=== PATIENT | male | born 1940 | race Caucasian/White ===

== ENCOUNTER → 2017-07-20 | Outpatient (CLI) | payer OTHER ==
[2017-07-20 11:50] LABS: BASOPHILS ABSOLUTE AUTO 0.03 K/mm3 (0.00-0.23); BASOPHILS PERCENT AUTO 0 % (0-2); EOSINOPHILS ABSOLUTE AUTO 0.01 K/mm3 (0.00-0.68); EOSINOPHILS PERCENT AUTO 0 % (0-6); Hematocrit 46.8 % (37.0-53.0); Hemoglobin 16.6 g/dL (13.5-17.5); IMMATURE GRAN ABSOLUTE AUTO 0.12 K/mm3 (0.00-0.10); IMMATURE GRAN PERCENT AUTO 1 % (0-1); LYMPHOCYTES ABSOLUTE AUTO 0.83 K/mm3 (0.84-5.20); LYMPHOCYTES PERCENT AUTO 4 % (21-46); MONOCYTES ABSOLUTE AUTO 1.49 K/mm3 (0.16-1.47); MONOCYTES PERCENT AUTO 7 % (4-13); Mean Corpuscular HGB 29.1 pg (26.0-34.0); Mean Corpuscular HGB Conc 35.5 g/dL (31.5-36.5); Mean Corpuscular Volume 82 fL (80-100); NEUTROPHILS ABSOLUTE AUTO 17.65 K/mm3 (1.96-9.15); NEUTROPHILS PERCENT AUTO 88 % (41-73); Platelet Count 269 K/mm3 (150-400); RDW Coefficient Variation 13.7 % (11.7-14.2); RDW Standard Deviation 39.9 fL (35.1-46.3); White Blood Cell Count 20.13 K/mm3 (4.00-11.30)
[2017-07-20 12:11] LABS: Alanine Aminotransfer (ALT/SGP 21 U/L (12-78); Albumin, Blood 3.9 g/dL (3.4-5.0); Alk Phos 87 U/L (40-126); Anion Gap 10 mmol/L (6-16); Aspartate Aminotrans (AST/SGOT 24 U/L (12-37); Bilirubin, Total 0.7 mg/dL (0.1-1.0); Blood Urea Nitrogen 19 mg/dL (8-24); Bun/Creatinine Ratio 12.5 (12.0-20.0); CO2, Blood 29 mmol/L (21-32); CPK Creatine Kinase 102 U/L (39-308); Calcium, Blood 10.4 mg/dL (8.5-10.1); Chloride, Blood 94 mmol/L (98-108); Creatinine, Blood 1.52 mg/dL (0.60-1.20); Glomerular Filtration Rate 45 (60-); Glucose, Blood 131 mg/dL (70-99); Potassium, Blood 3.8 mmol/L (3.5-5.5); Sodium, Blood 133 mmol/L (136-145); Total Protein, Blood 7.9 g/dL (6.4-8.2)
[2017-07-20 12:16] LABS: Troponin I <0.017 ng/mL (0.000-0.040)
[2017-07-20 12:20] LABS: Bacteria Not Seen /hpf; Red Blood Cells, Urine Rare /hpf (0-2); Squamous Epithelial Cells Rare /hpf (Few); White Blood Cells, Urine Not Seen /hpf (0-5)
== END | disposition home or self-care (01) ==
LOC: LAB EV 11:46
PROVIDERS: General Practice
DX: R07.89 Other chest pain (principal); R31.9 Hematuria, unspecified
CPT/HCPCS: 80053; 81015; 82550; 84484; 85025; 87086

== ENCOUNTER → 2018-02-02 | Outpatient (CLI) | payer OTHER ==
[2018-02-03 18:05] LABS: BASOPHILS ABSOLUTE AUTO 0.07 K/mm3 (0.00-0.23); BASOPHILS PERCENT AUTO 1 % (0-2); EOSINOPHILS ABSOLUTE AUTO 0.41 K/mm3 (0.00-0.68); EOSINOPHILS PERCENT AUTO 3 % (0-6); Hematocrit 45.4 % (37.0-53.0); Hemoglobin 15.2 g/dL (13.5-17.5); IMMATURE GRAN PERCENT AUTO 1 % (0-1); LYMPHOCYTES ABSOLUTE AUTO 1.67 K/mm3 (0.84-5.20); LYMPHOCYTES PERCENT AUTO 12 % (21-46); MONOCYTES ABSOLUTE AUTO 1.13 K/mm3 (0.16-1.47); MONOCYTES PERCENT AUTO 8 % (4-13); Mean Corpuscular HGB 28.6 pg (26.0-34.0); Mean Corpuscular HGB Conc 33.5 g/dL (31.5-36.5); Mean Corpuscular Volume 86 fL (80-100); Mean Platelet Volume 10.3 fL (9.1-12.4); NEUTROPHILS ABSOLUTE AUTO 10.68 K/mm3 (1.96-9.15); NEUTROPHILS PERCENT AUTO 76 % (41-73); Platelet Count 316 K/mm3 (150-400); RDW Coefficient Variation 14.6 % (11.7-14.2); RDW Standard Deviation 45.4 fL (35.1-46.3); Red Blood Cell Count 5.31 M/mm3 (4.30-5.90); White Blood Cell Count 14.06 K/mm3 (4.00-11.30)
[2018-02-03 18:27] LABS: Alanine Aminotransfer (ALT/SGP 20 U/L (12-78); Albumin/Globulin Ratio 1.2 (0.8-1.8); Alk Phos 81 U/L (50-136); Anion Gap 9 mmol/L (6-16); Aspartate Aminotrans (AST/SGOT 16 U/L (12-37); Bilirubin, Total 0.5 mg/dL (0.1-1.0); Blood Urea Nitrogen 19 mg/dL (8-24); Bun/Creatinine Ratio 21.5 (12.0-20.0); CHOL/HDL RATIO 2.9; CO2, Blood 24 mmol/L (21-32); Calcium, Blood 9.4 mg/dL (8.5-10.1); Chloride, Blood 102 mmol/L (98-108); Cholesterol 131 mg/dL (50-200); Creatinine, Blood 0.88 mg/dL (0.60-1.20); Globulin, Blood 3.4 g/dL (2.2-4.0); Glomerular Filtration Rate >60 (60-); Glucose, Blood 86 mg/dL (70-99); HDL Cholesterol 45 mg/dL (>39); LDL/HDL RATIO 1.6; Low Density Lipoprotein Chol 71 mg/dL (0-110); Sodium, Blood 135 mmol/L (136-145); Total Protein, Blood 7.4 g/dL (6.4-8.2); Triglycerides 75 mg/dL (30-160); Very Low Density Lipoprot Chol 15 mg/dL (6-32)
== END ==
LOC: LAB SHORT 17:49 → LAB 17:49 → LAB SHORT 02-03 17:49
PROVIDERS: Nurse Practitioner Adult Health
DX: J44.9 Chronic obstructive pulmonary disease, unspecified (principal); E78.5 Hyperlipidemia, unspecified; I10 Essential (primary) hypertension; F17.210 Nicotine dependence, cigarettes, uncomplicated
CPT/HCPCS: 80053; 80061; 85025

== ENCOUNTER → 2018-10-13 | Outpatient (CLI) | payer OTHER ==
[2018-10-13 18:35] LABS: BASOPHILS ABSOLUTE AUTO 0.07 K/mm3 (0.00-0.23); BASOPHILS PERCENT AUTO 0 % (0-2); EOSINOPHILS ABSOLUTE AUTO 0.84 K/mm3 (0.00-0.68); EOSINOPHILS PERCENT AUTO 5 % (0-6); Hematocrit 51.8 % (37.0-53.0); Hemoglobin 17.1 g/dL (13.5-17.5); IMMATURE GRAN ABSOLUTE AUTO 0.32 K/mm3 (0.00-0.10); IMMATURE GRAN PERCENT AUTO 2 % (0-1); LYMPHOCYTES ABSOLUTE AUTO 1.72 K/mm3 (0.84-5.20); LYMPHOCYTES PERCENT AUTO 10 % (21-46); MONOCYTES PERCENT AUTO 9 % (4-13); Mean Corpuscular HGB 28.6 pg (26.0-34.0); Mean Corpuscular Volume 87 fL (80-100); NEUTROPHILS ABSOLUTE AUTO 12.47 K/mm3 (1.96-9.15); NEUTROPHILS PERCENT AUTO 74 % (41-73); Platelet Count 235 K/mm3 (150-400); RDW Coefficient Variation 14.5 % (11.7-14.2); RDW Standard Deviation 45.9 fL (35.1-46.3); Red Blood Cell Count 5.97 M/mm3 (4.30-5.90); White Blood Cell Count 16.92 K/mm3 (4.00-11.30)
[2018-10-13 19:14] LABS: Alanine Aminotransfer (ALT/SGP 23 U/L (12-78); Albumin, Blood 3.4 g/dL (3.4-5.0); Albumin/Globulin Ratio 0.8 (0.8-1.8); Alk Phos 87 U/L (50-136); Anion Gap 7 mmol/L (6-16); Aspartate Aminotrans (AST/SGOT 18 U/L (12-37); Bilirubin, Total 0.4 mg/dL (0.1-1.0); Blood Urea Nitrogen 24 mg/dL (8-24); Bun/Creatinine Ratio 23.1 (12.0-20.0); CHOL/HDL RATIO 3.2; CO2, Blood 25 mmol/L (21-32); Calcium, Blood 9.2 mg/dL (8.5-10.1); Chloride, Blood 103 mmol/L (98-108); Cholesterol 148 mg/dL (50-200); Creatinine, Blood 1.04 mg/dL (0.60-1.20); Globulin, Blood 4.1 g/dL (2.2-4.0); Glomerular Filtration Rate >60 (60-); Glucose, Blood 102 mg/dL (70-99); HDL Cholesterol 46 mg/dL (>39); LDL Direct Measurement 85 mg/dL (0-130); LDL/HDL RATIO 1.7; Low Density Lipoprotein Chol 79 mg/dL (0-110); Potassium, Blood 3.9 mmol/L (3.5-5.5); Sodium, Blood 135 mmol/L (136-145); Total Protein, Blood 7.5 g/dL (6.4-8.2); Triglycerides 116 mg/dL (30-160); Very Low Density Lipoprot Chol 23 mg/dL (6-32)
== END | disposition home or self-care (01) ==
LOC: LAB SHORT 17:53 → LAB 17:53
PROVIDERS: Nurse Practitioner Family
DX: I10 Essential (primary) hypertension (principal)
CPT/HCPCS: 80053; 80061; 83721; 84443; 85025

== ENCOUNTER 2019-01-07 15:39 | Emergency (ER) | payer OTHER ==
[~2019-01-07] VITALS: Ht 177.8 cm; Wt 117.9 kg
[2019-01-07 16:23] LABS: BASOPHILS ABSOLUTE AUTO 0.07 K/mm3 (0.00-0.23); BASOPHILS PERCENT AUTO 1 % (0-2); EOSINOPHILS ABSOLUTE AUTO 0.72 K/mm3 (0.00-0.68); EOSINOPHILS PERCENT AUTO 7 % (0-6); Hematocrit 46.1 % (37.0-53.0); Hemoglobin 15.6 g/dL (13.5-17.5); IMMATURE GRAN ABSOLUTE AUTO 0.07 K/mm3 (0.00-0.10); IMMATURE GRAN PERCENT AUTO 1 % (0-1); LYMPHOCYTES PERCENT AUTO 13 % (21-46); MONOCYTES ABSOLUTE AUTO 1.18 K/mm3 (0.16-1.47); MONOCYTES PERCENT AUTO 12 % (4-13); Mean Corpuscular HGB 29.3 pg (26.0-34.0); Mean Corpuscular HGB Conc 33.8 g/dL (31.5-36.5); Mean Corpuscular Volume 87 fL (80-100); Mean Platelet Volume 10.1 fL (9.1-12.4); NEUTROPHILS ABSOLUTE AUTO 6.79 K/mm3 (1.96-9.15); NEUTROPHILS PERCENT AUTO 67 % (41-73); Platelet Count 249 K/mm3 (150-400); RDW Coefficient Variation 14.5 % (11.7-14.2); Red Blood Cell Count 5.33 M/mm3 (4.30-5.90); White Blood Cell Count 10.13 K/mm3 (4.00-11.30)
[2019-01-07 16:40] LABS: Alanine Aminotransfer (ALT/SGP 15 U/L (12-78); Albumin, Blood 3.5 g/dL (3.4-5.0); Albumin/Globulin Ratio 0.9 (0.8-1.8); Alk Phos 89 U/L (50-136); Anion Gap 5 mmol/L (6-16); Aspartate Aminotrans (AST/SGOT 15 U/L (12-37); Bilirubin, Total 0.4 mg/dL (0.1-1.0); Blood Urea Nitrogen 26 mg/dL (8-24); Bun/Creatinine Ratio 23.2 (12.0-20.0); CO2, Blood 28 mmol/L (21-32); Calcium, Blood 9.5 mg/dL (8.5-10.1); Chloride, Blood 107 mmol/L (98-108); Creatinine, Blood 1.12 mg/dL (0.60-1.20); Globulin, Blood 4.1 g/dL (2.2-4.0); Glomerular Filtration Rate >60 (60-); Glucose, Blood 95 mg/dL (70-99); Potassium, Blood 3.9 mmol/L (3.5-5.5); Sodium, Blood 140 mmol/L (136-145); Total Protein, Blood 7.6 g/dL (6.4-8.2)
[2019-01-07] MEDS ORDERED: ALBU90OI INH (18:13)
[2019-01-07] MEDS ORDERED: ALBU3IS INH (18:13)
[2019-01-07] MEDS ORDERED: Zithromax250 MG PO (18:13)
[2019-01-07] MEDS ORDERED: Prednisone50 MG PO (18:13)
== END 2019-01-07 19:01 | disposition home or self-care (01) ==
LOC: ER 15:39
PROVIDERS: Physician Assistant
DX: J44.1 Chronic obstructive pulmonary disease with (acute) exacerbation (principal); Z79.899 Other long term (current) drug therapy; Z87.891 Personal history of nicotine dependence
CPT/HCPCS: 36415; 71046; 80053; 83880; 85025; 93005; 93010; 94644; 96374; 96375; 99284-25; J1100; J1940

== ENCOUNTER 2019-01-24 17:03 | Emergency (ER) | payer OTHER ==
[~2019-01-24] VITALS: Ht 177.8 cm; Wt 117.9 kg
[~2019-01-24 17:03] MED LIST: ALBU3IS INH; ALBU90OI INH; Prednisone50 MG PO; Zithromax250 MG PO
[2019-01-24 17:58] LABS: BASOPHILS ABSOLUTE AUTO 0.07 K/mm3 (0.00-0.23); BASOPHILS PERCENT AUTO 1 % (0-2); EOSINOPHILS ABSOLUTE AUTO 1.24 K/mm3 (0.00-0.68); EOSINOPHILS PERCENT AUTO 9 % (0-6); Hematocrit 46.4 % (37.0-53.0); Hemoglobin 15.2 g/dL (13.5-17.5); IMMATURE GRAN ABSOLUTE AUTO 0.09 K/mm3 (0.00-0.10); IMMATURE GRAN PERCENT AUTO 1 % (0-1); LYMPHOCYTES ABSOLUTE AUTO 1.03 K/mm3 (0.84-5.20); LYMPHOCYTES PERCENT AUTO 8 % (21-46); MONOCYTES ABSOLUTE AUTO 1.02 K/mm3 (0.16-1.47); MONOCYTES PERCENT AUTO 8 % (4-13); Mean Corpuscular HGB 29.1 pg (26.0-34.0); Mean Corpuscular HGB Conc 32.8 g/dL (31.5-36.5); Mean Corpuscular Volume 89 fL (80-100); NEUTROPHILS ABSOLUTE AUTO 9.99 K/mm3 (1.96-9.15); NEUTROPHILS PERCENT AUTO 74 % (41-73); Platelet Count 220 K/mm3 (150-400); RDW Coefficient Variation 14.2 % (11.7-14.2); RDW Standard Deviation 46.4 fL (35.1-46.3); Red Blood Cell Count 5.22 M/mm3 (4.30-5.90); White Blood Cell Count 13.44 K/mm3 (4.00-11.30)
[2019-01-24 18:22] LABS: Albumin, Blood 3.5 g/dL (3.4-5.0); Albumin/Globulin Ratio 0.9 (0.8-1.8); Bilirubin, Total 0.3 mg/dL (0.1-1.0); Bun/Creatinine Ratio 22.7 (12.0-20.0); Calcium, Blood 9.3 mg/dL (8.5-10.1); Creatinine, Blood 1.41 mg/dL (0.60-1.20); Globulin, Blood 3.8 g/dL (2.2-4.0); Potassium, Blood 3.3 mmol/L (3.5-5.5); Total Protein, Blood 7.3 g/dL (6.4-8.2); Troponin I 0.036 ng/mL (0.000-0.040)
[2019-01-24] MEDS ORDERED: ZESTORETIC 20-251 EA PO (19:59)
[2019-01-24] MEDS ORDERED: Simvastatin40 MG PO (19:59)
[2019-01-24] MEDS ORDERED: TIOT18 INH (19:59)
[2019-01-24] MEDS ORDERED: Advair Hfa 45-212 GM INH (20:00)
[2019-01-24] MEDS ORDERED: GABA300 PO (20:00)
[2019-01-24] MEDS ORDERED: Ventolin/Prove6.7 GM INH (20:00)
[2019-01-24] MEDS ORDERED: Hydrocodone-Ap1 EA23 PO (20:01)
[2019-01-24] MEDS ORDERED: ALBU3IS NEB (20:01)
[2019-01-24] MEDS ORDERED: PRED20 PO (20:04)
== END 2019-01-24 20:20 | disposition home or self-care (01) ==
LOC: ER 17:03
PROVIDERS: Physician Assistant
DX: J44.1 Chronic obstructive pulmonary disease with (acute) exacerbation (principal); Z87.891 Personal history of nicotine dependence; Z79.899 Other long term (current) drug therapy
CPT/HCPCS: 71046; 80053; 83880; 84484; 85025; 93005; 93010; 94644; 96374; 99284-25; J2930

== ENCOUNTER → 2019-05-24 | Outpatient (CLI) | payer OTHER ==
[~2019-05-24] MED LIST changes: +ALBU3IS NEB; +Advair Hfa 45-212 GM INH; +GABA300 PO; +Hydrocodone-Ap1 EA23 PO; +PRED20 PO; +Simvastatin40 MG PO; +TIOT18 INH; +Ventolin/Prove6.7 GM INH; +ZESTORETIC 20-251 EA PO
[2019-05-24 19:40] LABS: BASOPHILS ABSOLUTE AUTO 0.04 K/mm3 (0.00-0.23); BASOPHILS PERCENT AUTO 0 % (0-2); EOSINOPHILS ABSOLUTE AUTO 0.74 K/mm3 (0.00-0.68); EOSINOPHILS PERCENT AUTO 7 % (0-6); Hematocrit 47.5 % (37.0-53.0); Hemoglobin 15.7 g/dL (13.5-17.5); IMMATURE GRAN ABSOLUTE AUTO 0.06 K/mm3 (0.00-0.10); IMMATURE GRAN PERCENT AUTO 1 % (0-1); LYMPHOCYTES ABSOLUTE AUTO 1.45 K/mm3 (0.84-5.20); LYMPHOCYTES PERCENT AUTO 13 % (21-46); MONOCYTES PERCENT AUTO 8 % (4-13); Mean Corpuscular HGB 28.6 pg (26.0-34.0); Mean Corpuscular HGB Conc 33.1 g/dL (31.5-36.5); Mean Corpuscular Volume 87 fL (80-100); Mean Platelet Volume 10.7 fL (9.1-12.4); NEUTROPHILS PERCENT AUTO 71 % (41-73); Platelet Count 230 K/mm3 (150-400); RDW Coefficient Variation 13.4 % (11.7-14.2); RDW Standard Deviation 42.5 fL (35.1-46.3); Red Blood Cell Count 5.49 M/mm3 (4.30-5.90); White Blood Cell Count 10.99 K/mm3 (4.00-11.30)
[2019-05-24 20:27] LABS: Alanine Aminotransfer (ALT/SGP 15 U/L (12-78); Albumin, Blood 3.5 g/dL (3.4-5.0); Albumin/Globulin Ratio 0.9 (0.8-1.8); Alk Phos 79 U/L (50-136); Anion Gap 7 mmol/L (6-16); Aspartate Aminotrans (AST/SGOT 10 U/L (12-37); Bilirubin, Total 0.7 mg/dL (0.1-1.0); Blood Urea Nitrogen 30 mg/dL (8-24); CHOL/HDL RATIO 3.2; CO2, Blood 25 mmol/L (21-32); Calcium, Blood 9.8 mg/dL (8.5-10.1); Chloride, Blood 104 mmol/L (98-108); Cholesterol 130 mg/dL (50-200); Globulin, Blood 3.8 g/dL (2.2-4.0); Glomerular Filtration Rate 48 (60-); Glucose, Blood 121 mg/dL (70-99); HDL Cholesterol 40 mg/dL (>39); LDL Direct Measurement 59 mg/dL (0-130); LDL/HDL RATIO 1.5; Low Density Lipoprotein Chol 59 mg/dL (0-110); Potassium, Blood 3.8 mmol/L (3.5-5.5); Sodium, Blood 136 mmol/L (136-145); Total Protein, Blood 7.3 g/dL (6.4-8.2); Triglycerides 157 mg/dL (30-160); Very Low Density Lipoprot Chol 31 mg/dL (6-32)
== END | disposition home or self-care (01) ==
LOC: LAB SHORT 18:34 → LAB 18:34
PROVIDERS: Nurse Practitioner Family
DX: E78.5 Hyperlipidemia, unspecified (principal); I10 Essential (primary) hypertension
CPT/HCPCS: 80053; 80061; 83721; 85025

== ENCOUNTER 2019-12-08 12:17 | Emergency (ER) | payer OTHER ==
[~2019-12-08] VITALS: Ht 177.8 cm; Wt 113.4 kg
[2019-12-08 13:02] LABS: BASOPHILS ABSOLUTE AUTO 0.07 K/mm3 (0.00-0.23); BASOPHILS PERCENT AUTO 1 % (0-2); EOSINOPHILS ABSOLUTE AUTO 0.48 K/mm3 (0.00-0.68); EOSINOPHILS PERCENT AUTO 4 % (0-6); Hematocrit 50.5 % (37.0-53.0); Hemoglobin 17.1 g/dL (13.5-17.5); IMMATURE GRAN PERCENT AUTO 1 % (0-1); LYMPHOCYTES ABSOLUTE AUTO 1.55 K/mm3 (0.84-5.20); LYMPHOCYTES PERCENT AUTO 12 % (21-46); MONOCYTES PERCENT AUTO 9 % (4-13); Mean Corpuscular HGB 28.8 pg (26.0-34.0); Mean Corpuscular HGB Conc 33.9 g/dL (31.5-36.5); Mean Corpuscular Volume 85 fL (80-100); Mean Platelet Volume 9.9 fL (9.1-12.4); NEUTROPHILS ABSOLUTE AUTO 9.35 K/mm3 (1.96-9.15); NEUTROPHILS PERCENT AUTO 73 % (41-73); Platelet Count 269 K/mm3 (150-400); RDW Coefficient Variation 13.8 % (11.7-14.2); RDW Standard Deviation 42.9 fL (35.1-46.3); Red Blood Cell Count 5.94 M/mm3 (4.30-5.90); White Blood Cell Count 12.75 K/mm3 (4.00-11.30)
[2019-12-08] MEDS ORDERED: Cymbalta30 MG PO (13:11)
[2019-12-08] MEDS ORDERED: NEURONTIN300 MG PO (13:11)
[2019-12-08] MEDS ORDERED: PRED5 PO (13:13)
[2019-12-08] MEDS ORDERED: LISINOPRIL-HCT1 EAC1 PO (13:14)
[2019-12-08 13:30] LABS: Alanine Aminotransfer (ALT/SGP 16 U/L (12-78); Albumin, Blood 3.8 g/dL (3.4-5.0); Alk Phos 71 U/L (50-136); Anion Gap 5 mmol/L (6-16); Aspartate Aminotrans (AST/SGOT 16 U/L (12-37); Bilirubin, Total 0.4 mg/dL (0.1-1.0); Blood Urea Nitrogen 15 mg/dL (8-24); Bun/Creatinine Ratio 13.4 (12.0-20.0); CO2, Blood 25 mmol/L (21-32); Calcium, Blood 9.8 mg/dL (8.5-10.1); Chloride, Blood 106 mmol/L (98-108); Creatinine, Blood 1.12 mg/dL (0.60-1.20); Globulin, Blood 3.8 g/dL (2.2-4.0); Glomerular Filtration Rate >60 (60-); Glucose, Blood 95 mg/dL (70-99); Potassium, Blood 3.8 mmol/L (3.5-5.5); Sodium, Blood 136 mmol/L (136-145); Total Protein, Blood 7.6 g/dL (6.4-8.2)
[2019-12-08] MEDS ORDERED: Halcion0.25 MG PO (13:50)
[2019-12-08] MEDS ORDERED: TRAM50 PO (13:50)
== END 2019-12-08 14:12 | disposition home or self-care (01) ==
LOC: ER 12:17
PROVIDERS: Emergency Medicine
DX: R51 Headache (principal); M25.552 Pain in left hip; G89.29 Other chronic pain; G47.00 Insomnia, unspecified; F43.9 Reaction to severe stress, unspecified; J44.9 Chronic obstructive pulmonary disease, unspecified; Z79.899 Other long term (current) drug therapy; Z87.891 Personal history of nicotine dependence
CPT/HCPCS: 36415; 70450; 80053; 85025; 99284-25

== ENCOUNTER → 2020-05-15 | Outpatient (CLI) | payer OTHER ==
[~2020-05-15] MED LIST changes: +Cymbalta30 MG PO; +Halcion0.25 MG PO; +LISINOPRIL-HCT1 EAC1 PO; +NEURONTIN300 MG PO; +PRED5 PO; +TRAM50 PO
[2020-05-15 18:05] LABS: BASOPHILS ABSOLUTE AUTO 0.07 K/mm3 (0.00-0.23); BASOPHILS PERCENT AUTO 1 % (0-2); EOSINOPHILS ABSOLUTE AUTO 0.27 K/mm3 (0.00-0.68); EOSINOPHILS PERCENT AUTO 2 % (0-6); Hematocrit 51.5 % (37.0-53.0); IMMATURE GRAN ABSOLUTE AUTO 0.09 K/mm3 (0.00-0.10); IMMATURE GRAN PERCENT AUTO 1 % (0-1); LYMPHOCYTES PERCENT AUTO 8 % (21-46); MONOCYTES ABSOLUTE AUTO 0.91 K/mm3 (0.16-1.47); MONOCYTES PERCENT AUTO 7 % (4-13); Mean Corpuscular HGB 29.3 pg (26.0-34.0); Mean Corpuscular Volume 89 fL (80-100); Mean Platelet Volume 10.4 fL (9.1-12.4); NEUTROPHILS ABSOLUTE AUTO 10.57 K/mm3 (1.96-9.15); NEUTROPHILS PERCENT AUTO 82 % (41-73); Platelet Count 254 K/mm3 (150-400); RDW Coefficient Variation 14.1 % (11.7-14.2); RDW Standard Deviation 45.4 fL (35.1-46.3); White Blood Cell Count 12.91 K/mm3 (4.00-11.30)
[2020-05-15 18:47] LABS: Alanine Aminotransfer (ALT/SGP 24 U/L (12-78); Albumin, Blood 3.7 g/dL (3.4-5.0); Alk Phos 93 U/L (50-136); Anion Gap 7 mmol/L (6-16); Aspartate Aminotrans (AST/SGOT 23 U/L (12-37); Bilirubin, Total 0.4 mg/dL (0.1-1.0); Blood Urea Nitrogen 22 mg/dL (8-24); Bun/Creatinine Ratio 24.5 (12.0-20.0); CHOL/HDL RATIO 2.7; CO2, Blood 24 mmol/L (21-32); Calcium, Blood 9.6 mg/dL (8.5-10.1); Chloride, Blood 105 mmol/L (98-108); Cholesterol 146 mg/dL (50-200); Globulin, Blood 3.8 g/dL (2.2-4.0); Glomerular Filtration Rate >60 (60-); Glucose, Blood 106 mg/dL (70-99); HDL Cholesterol 55 mg/dL (>39); LDL/HDL RATIO 1.2; Low Density Lipoprotein Chol 68 mg/dL (0-110); Potassium, Blood 4.1 mmol/L (3.5-5.5); Sodium, Blood 136 mmol/L (136-145); Total Protein, Blood 7.5 g/dL (6.4-8.2); Triglycerides 114 mg/dL (30-160); Very Low Density Lipoprot Chol 22 mg/dL (6-32)
== END | disposition home or self-care (01) ==
LOC: LAB SHORT 14:20
PROVIDERS: Nurse Practitioner Family
DX: E78.5 Hyperlipidemia, unspecified (principal); I10 Essential (primary) hypertension
CPT/HCPCS: 80053; 80061; 85025

== ENCOUNTER → 2020-08-03 | Outpatient (CLI) | payer OTHER ==
[2020-08-03 17:31] LABS: Appearance, Urine Clear (Clear); Bilirubin, Urine Neg (Neg); Blood, Urine 1+ (Neg); Color, Urine Yellow (P-Yellow); Glucose Qualitative, Urine Neg (Neg); Ketones, Urine Neg (Neg); Leukocyte Esterase, Urine 1+ (Neg); Nitrite, Urine Neg (Neg); Protein, Urine 2+ (Neg); Urobilinogen, Urine 1+ (Normal)
[2020-08-03 17:42] LABS: Bacteria Rare /hpf; Mucus Light (0-Heavy); Squamous Epithelial Cells Rare /hpf (Few)
[2020-08-03 17:43] LABS: Amorphous Light (0-Heavy)
== END ==
LOC: LAB 16:18 → LAB SHORT 16:18
PROVIDERS: Nurse Practitioner Family
DX: R30.9 Painful micturition, unspecified (principal)
CPT/HCPCS: 81001; 87086

== ENCOUNTER → 2020-11-20 | Outpatient (CLI) | payer OTHER | END | disposition home or self-care (01) | LOC: LAB 16:11 | DX: J44.9 Chronic obstructive pulmonary disease, unspecified (principal); E11.9 Type 2 diabetes mellitus without complications; E66.9 Obesity, unspecified; R53.83 Other fatigue; R97.20 Elevated prostate specific antigen [PSA] ==

== ENCOUNTER → 2021-03-22 | Outpatient (CLI) | payer OTHER ==
[2021-03-22 18:22] LABS: PSA, %Free 23.3 %; PSA, Free 0.781 ng/mL
== END | disposition home or self-care (01) ==
LOC: LAB SHORT 14:16
PROVIDERS: Nurse Practitioner Family
DX: Z13.1 Encounter for screening for diabetes mellitus (principal); R73.09 Other abnormal glucose; R97.20 Elevated prostate specific antigen [PSA]
CPT/HCPCS: 83036; 84153; 84154

== ENCOUNTER → 2021-06-13 | Outpatient (CLI) | payer OTHER | LOC: LAB 14:47 → LAB SHORT 14:47 | PROVIDERS: Nurse Practitioner Family | DX: E53.9 Vitamin B deficiency, unspecified (principal); G62.9 Polyneuropathy, unspecified | CPT/HCPCS: 82607; 82746 ==

== ENCOUNTER 2021-07-05 00:25 | Emergency (ER) | payer OTHER ==
[~2021-07-05] VITALS: Ht 177.8 cm; Wt 104.3 kg
[2021-07-05] MEDS ORDERED: HALCION0.25 M2 PO (00:58)
[2021-07-05] MEDS ORDERED: TRELEGY ELLIPT1 EACH INH (00:58)
[2021-07-05] MEDS ORDERED: HYDROCODONE-AC1 EA16 PO (00:58)
[2021-07-05] MEDS ORDERED: DICL75ER PO (00:58)
[2021-07-05] MEDS ORDERED: NEURONTIN300 MG PO (00:58)
[2021-07-05] MEDS ORDERED: HYDHCL25 (00:59)
[2021-07-05] MEDS ORDERED: IPRAT-ALBUT 0.5-3 ML (00:59)
[2021-07-05] MEDS ORDERED: FLUT.05NI (00:59)
[2021-07-05 01:00] LABS: BASOPHILS ABSOLUTE AUTO 0.07 K/mm3 (0.00-0.23); BASOPHILS PERCENT AUTO 1 % (0-2); EOSINOPHILS PERCENT AUTO 4 % (0-6); Hematocrit 51.6 % (37.0-53.0); Hemoglobin 17.4 g/dL (13.5-17.5); IMMATURE GRAN ABSOLUTE AUTO 0.16 K/mm3 (0.00-0.10); IMMATURE GRAN PERCENT AUTO 1 % (0-1); LYMPHOCYTES ABSOLUTE AUTO 2.08 K/mm3 (0.84-5.20); LYMPHOCYTES PERCENT AUTO 15 % (21-46); MONOCYTES ABSOLUTE AUTO 1.05 K/mm3 (0.16-1.47); MONOCYTES PERCENT AUTO 8 % (4-13); Mean Corpuscular HGB 28.8 pg (26.0-34.0); Mean Corpuscular HGB Conc 33.7 g/dL (31.5-36.5); Mean Corpuscular Volume 85 fL (80-100); Mean Platelet Volume 9.6 fL (9.1-12.4); NEUTROPHILS ABSOLUTE AUTO 9.81 K/mm3 (1.96-9.15); NEUTROPHILS PERCENT AUTO 72 % (41-73); Platelet Count 315 K/mm3 (150-400); RDW Coefficient Variation 13.5 % (11.7-14.2); Red Blood Cell Count 6.05 M/mm3 (4.30-5.90); White Blood Cell Count 13.67 K/mm3 (4.00-11.30)
[2021-07-05] MEDS ORDERED: Lisinopril-Hct1 EAC4 PO (01:00)
[2021-07-05] MEDS ORDERED: EFFEXOR XR37.5 MG PO (01:00)
[2021-07-05 01:14] LABS: Alanine Aminotransfer (ALT/SGP 29 U/L (12-78); Albumin, Blood 3.5 g/dL (3.4-5.0); Albumin/Globulin Ratio 0.8 (0.8-1.8); Alk Phos 109 U/L (50-136); Anion Gap 8 mmol/L (6-16); Aspartate Aminotrans (AST/SGOT 29 U/L (12-37); Bilirubin, Total 0.7 mg/dL (0.1-1.0); Blood Urea Nitrogen 33 mg/dL (8-24); Bun/Creatinine Ratio 18.1 (12.0-20.0); CO2, Blood 25 mmol/L (21-32); Calcium, Blood 8.9 mg/dL (8.5-10.1); Chloride, Blood 106 mmol/L (98-108); Creatinine, Blood 1.82 mg/dL (0.60-1.20); Ethanol (Alcohol), Blood, Med <3 mg/dL; Globulin, Blood 4.2 g/dL (2.2-4.0); Glomerular Filtration Rate 36 (60-); Glucose, Blood 123 mg/dL (70-99); Potassium, Blood 4.2 mmol/L (3.5-5.5); Sodium, Blood 139 mmol/L (136-145); Total Protein, Blood 7.7 g/dL (6.4-8.2)
[2021-07-05 01:59] LABS: Influenza A, PCR NEGATIVE (NEGATIVE); Influenza B, PCR NEGATIVE (NEGATIVE); Resp Syncytial Virus, PCR NEGATIVE (NEGATIVE); SARS-Cov-2 (COVID-19) PCR, MMC NEGATIVE (NEGATIVE)
[2021-07-05 02:11] LABS: U Amphetamine Screen Not Detected; U Barbituate Screen Not Detected; U Benzodiazapine Screen Not Detected; U Buprenorphine Screen Not Detected; U Cannabinoids Screen DETECTED; U Cocaine Screen Not Detected; U Methadone Screen Not Detected; U Methamphetamine Screen Not Detected; U Opiates Screen DETECTED; U Oxycodone Screen Not Detected; U Phencyclidine Screen Not Detected; U Propoxyphene Screen Not Detected
== END 2021-07-05 02:16 | disposition short-term general hospital (02) ==
LOC: ER 00:25
PROVIDERS: Student in an Organized Health Care Education/Training Program
DX: T21.33XA Burn of third degree of upper back, initial encounter (principal); T21.34XA Burn of third degree of lower back, initial encounter; T22.331A Burn of third degree of right upper arm, initial encounter; T20.27XA Burn of second degree of neck, initial encounter; T28.0XXA Burn of mouth and pharynx, initial encounter; T31.11 Burns involving 10-19% of body surface with 10-19% third degree burns; T21.35XA Burn of third degree of buttock, initial encounter; Z87.891 Personal history of nicotine dependence; Z79.899 Other long term (current) drug therapy; X08.8XXA Exposure to other specified smoke, fire and flames, initial encounter
CPT/HCPCS: 0241U; 16030; 31500; 31720; 36415; 51702; 71045; 80053; 83605; 85025; 96361-59; 96374-59; 99285-25; G0480; J1170; J2250; J2704; J3010; J7030

== ENCOUNTER 2022-04-20 17:48 | Inpatient (IN) | payer OTHER ==
[~2022-04-20] VITALS: Ht 177.8 cm; Wt 113.0 kg
[~2022-04-20 17:48] MED LIST changes: +AMLODIPINE BESY10 MG PO; +ASCO500 PO; +BENADRYL25 MG PO; +BUPR100 PO; +DICL75ER PO; +DULO30 PO; +EFFEXOR XR37.5 MG PO; +FERSU300 PO; +FLUT.05NI; +HALCION0.25 M2 PO; +HYDHCL25; +HYDHCL25 PO; +HYDROCODONE-AC1 EA16 PO; +IPRAT-ALBUT 0.5-3 ML; +JUVEN PACKET1 EAC3 PO; +Lisinopril-Hct1 EAC4 PO; +METO50ER PO; +TRAZ50 PO; +TRELEGY ELLIPT1 EACH INH; +ZOCOR20 MG PO
[2022-04-20 18:16] LABS: Base Excess Venous 13.8 mmol/L; Bicarbonate Venous 33.7 mmol/L (24.0-30.0); PCO2 Venous 63.8 mmHg (38-42); pH Blood Venous 7.39 (7.34-7.37)
[2022-04-20 18:17] LABS: BASOPHILS ABSOLUTE AUTO 0.06 K/mm3 (0.00-0.23); BASOPHILS PERCENT AUTO 0 % (0-2); EOSINOPHILS ABSOLUTE AUTO 0.25 K/mm3 (0.00-0.68); EOSINOPHILS PERCENT AUTO 2 % (0-6); Hematocrit 44.1 % (37.0-53.0); Hemoglobin 14.4 g/dL (13.5-17.5); IMMATURE GRAN ABSOLUTE AUTO 0.23 K/mm3 (0.00-0.10); IMMATURE GRAN PERCENT AUTO 2 % (0-1); LYMPHOCYTES ABSOLUTE AUTO 0.94 K/mm3 (0.84-5.20); LYMPHOCYTES PERCENT AUTO 7 % (21-46); MONOCYTES ABSOLUTE AUTO 1.22 K/mm3 (0.16-1.47); MONOCYTES PERCENT AUTO 9 % (4-13); Mean Corpuscular HGB 28.1 pg (26.0-34.0); Mean Corpuscular HGB Conc 32.7 g/dL (31.5-36.5); Mean Corpuscular Volume 86 fL (80-100); Mean Platelet Volume 10.1 fL (9.1-12.4); NEUTROPHILS ABSOLUTE AUTO 11.58 K/mm3 (1.96-9.15); NEUTROPHILS PERCENT AUTO 81 % (41-73); Platelet Count 243 K/mm3 (150-400); RDW Coefficient Variation 16.6 % (11.7-14.2); RDW Standard Deviation 52.4 fL (35.1-46.3); Red Blood Cell Count 5.13 M/mm3 (4.30-5.90); White Blood Cell Count 14.28 K/mm3 (4.00-11.30)
[2022-04-20] MEDS ORDERED: SYMBICORT 16010.2 GM INH (18:23)
[2022-04-20] MEDS ORDERED: Norco 5-325 Ta1 EACH PO (18:24)
[2022-04-20 18:35] LABS: Albumin, Blood 2.7 g/dL (3.4-5.0); Albumin/Globulin Ratio 0.6 (0.8-1.8); Bilirubin, Total 0.4 mg/dL (0.1-1.0); Calcium, Blood 9.7 mg/dL (8.5-10.1); Creatinine, Blood 1.04 mg/dL (0.60-1.20); Globulin, Blood 4.9 g/dL (2.2-4.0); Potassium, Blood 3.4 mmol/L (3.5-5.5); Total Protein, Blood 7.6 g/dL (6.4-8.2)
[2022-04-20 18:53] LABS: Influenza A, PCR NEGATIVE (NEGATIVE); Influenza B, PCR NEGATIVE (NEGATIVE); Resp Syncytial Virus, PCR NEGATIVE (NEGATIVE); SARS-Cov-2 (COVID-19) PCR, MMC NEGATIVE (NEGATIVE)
[2022-04-21 03:14] LABS: Base Excess Venous 12.7 mmol/L; Bicarbonate Venous 33.9 mmol/L (24.0-30.0); PCO2 Venous 53.3 mmHg (38-42); pH Blood Venous 7.45 (7.34-7.37)
[2022-04-21 04:37] LABS: U Amphetamine Screen Not Detected; U Barbituate Screen Not Detected; U Benzodiazapine Screen Not Detected; U Buprenorphine Screen Not Detected; U Cannabinoids Screen Not Detected; U Cocaine Screen Not Detected; U Methadone Screen Not Detected; U Methamphetamine Screen Not Detected; U Opiates Screen DETECTED; U Oxycodone Screen Not Detected; U Phencyclidine Screen Not Detected; U Propoxyphene Screen Not Detected
[2022-04-21 05:48] LABS: BASOPHILS ABSOLUTE AUTO 0.03 K/mm3 (0.00-0.23); BASOPHILS PERCENT AUTO 0 % (0-2); EOSINOPHILS PERCENT AUTO 0 % (0-6); Hematocrit 40.7 % (37.0-53.0); Hemoglobin 13.7 g/dL (13.5-17.5); IMMATURE GRAN ABSOLUTE AUTO 0.18 K/mm3 (0.00-0.10); IMMATURE GRAN PERCENT AUTO 1 % (0-1); LYMPHOCYTES ABSOLUTE AUTO 0.46 K/mm3 (0.84-5.20); LYMPHOCYTES PERCENT AUTO 4 % (21-46); MONOCYTES ABSOLUTE AUTO 0.16 K/mm3 (0.16-1.47); MONOCYTES PERCENT AUTO 1 % (4-13); Mean Corpuscular HGB 28.1 pg (26.0-34.0); Mean Corpuscular HGB Conc 33.7 g/dL (31.5-36.5); Mean Corpuscular Volume 83 fL (80-100); Mean Platelet Volume 10.1 fL (9.1-12.4); NEUTROPHILS ABSOLUTE AUTO 12.09 K/mm3 (1.96-9.15); NEUTROPHILS PERCENT AUTO 94 % (41-73); Platelet Count 243 K/mm3 (150-400); RDW Coefficient Variation 16.3 % (11.7-14.2); RDW Standard Deviation 49.7 fL (35.1-46.3); Red Blood Cell Count 4.88 M/mm3 (4.30-5.90); White Blood Cell Count 12.92 K/mm3 (4.00-11.30)
[2022-04-21 06:06] LABS: Albumin, Blood 2.3 g/dL (3.4-5.0); Albumin/Globulin Ratio 0.5 (0.8-1.8); Bilirubin, Total 0.3 mg/dL (0.1-1.0); Bun/Creatinine Ratio 27.7 (12.0-20.0); Calcium, Blood 9.3 mg/dL (8.5-10.1); Creatinine, Blood 1.12 mg/dL (0.60-1.20); Globulin, Blood 4.7 g/dL (2.2-4.0); Magnesium, Blood 2.2 mg/dL (1.6-2.4); Potassium, Blood 3.6 mmol/L (3.5-5.5)
[2022-04-21 10:17] LABS: PCO2 Arterial 46.9 mmHg (35-45); PO2 Arterial 74.8 mmHg (80-100); pH Blood Arterial 7.48 (7.35-7.45)
[2022-04-21 11:19] LABS: International Normalized Ratio 1.05
--- NOTE | 2022-04-21 18:40 | NUR ---
SHIFT ASSESSMENT PT ARRIVED TO ICU FROM ER VIA GURNEY, TRANSFERRED BY SLIDER SHEET. PT ALERT TO PERSON AND , FOLLOWING ALL COMMANDS, PETERSEN. UPON ARRIVAL PT ON PRECEDEX @ 0.7MCG/KG/HR TO ASSIST WITH BIPAP COMPLIANCE. PT VERY ANXIOUS WITHOUT SEDATION. PT ALSO HAS HEPARIN INFUSING @ PHARMACY PRESCRIBED RATE. YOO CATHETER PATENT, INSERTED IN ER, DRAINING YELLOW URINE. SHORTLY AFTER ARRIVAL PT BECAME VERY ANXIOUS/ AGITATED, PRECEDEX TITRATED UP TO 1.4MCG/KG/HR, DURING THE TITRATION PT RIPPED OUT HIS 3RD PERIPHERAL IV AND MONITORING EQUIPMENT. HOSPITALIST NOTIFIED, KENYA SOFT WRIST RESTRAINTS APPLIED. PT THEN MANAGED TO PULL OFF BIPAP WHILE IN RESTRAINTS, YELLING FOR HELP. PT EASILY CALMED, CURRENTLY RECEIVING A BREAK FROM BIPAP, ON OXYMIZER @ 10LPM c O2 SATS >95%, RR REMAINS @ 30 WHERE IT WAS WHILE WEARING BIPAP. WILL CONTINUE TO MONITOR CLOSELY.
--- NOTE | 2022-04-21 19:13 | NUR ---
TOOK OVER CARE OF PT AT 1900. PT HEPARIN DRIP INCREASED TO 18U/KG/HR, PRECEDEX 1.4, AND OXIMIZER AT 10L. ATTEMPTED TO NOTIFY DR. OLVERA OF CRITICAL TROPONIN, FOLLOWED UP WITH CHARGE FOR PM PROVIDER COVERAGE.
[2022-04-22 01:26] LABS: BASOPHILS ABSOLUTE AUTO 0.02 K/mm3 (0.00-0.23); BASOPHILS PERCENT AUTO 0 % (0-2); EOSINOPHILS ABSOLUTE AUTO 0.02 K/mm3 (0.00-0.68); EOSINOPHILS PERCENT AUTO 0 % (0-6); Hematocrit 39.1 % (37.0-53.0); Hemoglobin 13.2 g/dL (13.5-17.5); IMMATURE GRAN ABSOLUTE AUTO 0.14 K/mm3 (0.00-0.10); IMMATURE GRAN PERCENT AUTO 1 % (0-1); LYMPHOCYTES ABSOLUTE AUTO 0.63 K/mm3 (0.84-5.20); LYMPHOCYTES PERCENT AUTO 4 % (21-46); MONOCYTES ABSOLUTE AUTO 0.58 K/mm3 (0.16-1.47); MONOCYTES PERCENT AUTO 4 % (4-13); Mean Corpuscular HGB 28.1 pg (26.0-34.0); Mean Corpuscular HGB Conc 33.8 g/dL (31.5-36.5); Mean Corpuscular Volume 83 fL (80-100); Mean Platelet Volume 10.1 fL (9.1-12.4); NEUTROPHILS ABSOLUTE AUTO 13.53 K/mm3 (1.96-9.15); NEUTROPHILS PERCENT AUTO 91 % (41-73); Platelet Count 227 K/mm3 (150-400); RDW Coefficient Variation 16.4 % (11.7-14.2); Red Blood Cell Count 4.69 M/mm3 (4.30-5.90); White Blood Cell Count 14.92 K/mm3 (4.00-11.30)
[2022-04-22 01:43] LABS: Bun/Creatinine Ratio 36.4 (12.0-20.0); Calcium, Blood 9.1 mg/dL (8.5-10.1); Creatinine, Blood 1.1 mg/dL (0.60-1.20); Magnesium, Blood 2.2 mg/dL (1.6-2.4); Potassium, Blood 3.4 mmol/L (3.5-5.5)
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
--- NOTE | 2022-04-22 09:50 | NUR ---
SHIFT ASSESSMENT PT ALERT AND ORIENTED TO PERSON AND , FOLLOWING COMMANDS. RESTRAINTS DC'D PT IS NOW MORE COMPLIANT, NOT PULLING AT LINES AND CORDS. PT REMAINS ON PRECEDEX, TITRATING NEEDED TO ASSIST WITH BIPAP TOLERANCE. PT RECEIVING BREAKS WITH OXYMIZER WHEN REQUESTED @ 10LPM. HEPARIN GTT INFUSING AT PHARMACY PRESCRIBED RATE. TRENDING SERIAL TROPONINS, CURRENTLY TRENDING DOWN. PT DENIES CP. YOO CATH DRAINING BOB URINE. NO BM TODAY. WILL MONITOR CLOSELY.
[2022-04-22 12:08] LABS: Base Excess Venous 13.2 mmol/L; PCO2 Venous 48.1 mmHg (38-42); pH Blood Venous 7.49 (7.34-7.37)
--- NOTE | 2022-04-22 18:19 | NUR ---
SHIFT SUMMARY PT REMAINS ALERT TO PERSON AND PLACE, FOLLOWING COMMANDS BUT QUITE ANXIOUS, PRECEDEX INFUSING @ 1.4MCG/KG/HR WELL PRN HALDOL. PT CURRENTLY TOLERATING BIPAP BUT TOOK MANY BREAKS T/O DAY, TOLERATED OXYMIZER FOR >1HR WITHOUT BECOMING SOB. HEPARIN NOW INFUSING @ 23U/KG/HR. YOO CATH NOW DRAINING PINK URINE, TOTAL OF 2750 URINE OUT THIS SHIFT. NO BM. NO OTHER ACUTE CHANGES.
--- NOTE | 2022-04-22 19:30 | NUR ---
ASSUMED CARE OF PT. PT RESTING IN BED, USING CALL LIGHT APPROPRIATELY. IV HEPARIN INFUSING AT 23 UNITS AND PRECEEX INFUSING AT 1.4MCG. PT ON OXYMIZER AND O2 SAT IS CURRENTLY 98-100%.
[2022-04-23 03:29] LABS: Hematocrit 42.6 % (37.0-53.0); Hemoglobin 14.2 g/dL (13.5-17.5); Mean Corpuscular HGB 27.8 pg (26.0-34.0); Mean Corpuscular HGB Conc 33.3 g/dL (31.5-36.5); Mean Corpuscular Volume 84 fL (80-100); Mean Platelet Volume 10.6 fL (9.1-12.4); Platelet Count 217 K/mm3 (150-400); White Blood Cell Count 13.17 K/mm3 (4.00-11.30)
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
[2022-04-23 04:22] LABS: Bun/Creatinine Ratio 41.3 (12.0-20.0); Calcium, Blood 8.5 mg/dL (8.5-10.1); Creatinine, Blood 1.04 mg/dL (0.60-1.20); Potassium, Blood 3.5 mmol/L (3.5-5.5)
--- NOTE | 2022-04-23 07:56 | NUR ---
CARE OF PT ASSUMED AT 0700. PT AWAKE ON BIPAP 18/12 W 15L. PRECEDEX AT 0.8MCG, BEDSIDE REPORT TAKEN, PRECEDEX DECREASED TO 0.6MCG AT THIS TIME. HEP INFUSING AT 23UNITS. PT HAS CRACKLES TO BASES AND WHEEZES T/O. RT AT BEDSIDE AND PLACED HIGH FLOW 02 AT 15L W NEB TX. PT CALM AT TIME BUT WITHIN MIN. C/O SOB, RESP 40'S, BREATHING VERY LABORED; SATS DID NOT DROP. RT CALLED AND PT PLACED BACK ON BIPAP. RESP LESS LABORED NOW. DR MILLER CALLED TO GIVE UPDATE. PT WILL REMAIN NPO FOR NOW, AWAITING FURTHER ORDERS.
--- NOTE | 2022-04-23 12:21 | NUR ---
PT GIVEN FULL BEDBATH W LINEN CHANGE. AFTER BATH MASK REMOVED FOR BREAK. PT PLACED ON 10L VIA HIGHFLOW NC. PT STATED HE FELT SOB AND VERY ANXIOUS. PT STATED "I DONT WANT TO KEEP DOING THIS, ITS TOO HARD, IM SO ANXIOUS". PRECEDEX INCREASED TO 1MCG. PT DOING BETTER THIS AFTERNOON ON BREAK COMPARED TO THIS AM. RESP LESS LABORED. ABLE TO TOLERATE SMALL SIPS OF WATER. LUNGS UNCHANGED, WHEEZES T/O W CRACKLES TO BASES, LASIX IV GIVEN. SATS 98% ON BREAK.
--- NOTE | 2022-04-23 13:36 | NUR ---
PT PLACED BACK ON BIPAP, PT VERY ANXIOUS, HALDOL GIVEN THIS SEEMED TO HELP PT RELAX WHEN GIVEN AT 1000. OVERALL PT DID WELL W BREAK COMPARED TO THIS AM.
--- NOTE | 2022-04-23 18:28 | NUR ---
PT REMAINS ON 10L VIA HIGH FLOW, BEE WELL, SATS >95%. GOOD URINE OUTPUT TODAY W LASIX. PRECEDEX REMAINS AT 1MCG D/T ANXIETY; PT HAS BEEN WIDE AWAKE ON THIS DOSE, WATCHING TV AND USING CALL LIGHT APPROPRIATELY. NO CHANGES TO HEP GTT.
--- NOTE | 2022-04-24 06:05 | NUR ---
SHIFT SUMMARY: PT HEART RATE SR/SB WITH PVCs. HEPARIN GTT CHANGED TO 22 UNITS / 39 ML/HR PER PHARMACY DOSING. PRECEDEX @ 0.5. HALDOL GIVEN ONCE, MORPHINE GIVEN ONCE, AND ONE TIME DOSE OF PO ATIVAN GIVEN AT HS. YOO IN PLACE, DRAINING TO GRAVITY. 10L HFNC. NO ACUTE EVENTS OVERNIGHT
--- NOTE | 2022-04-24 07:16 | NUR ---
ASSUMED CARE: PT RESTING IN BED. RT AT BEDSIDE AT THIS TIME. NSR ON TELE WITH PVCS. PRECEDEX GTT AT 1.0 MCG/KG AND HEPARIN GTT RUNNING. NO ACUTE NEEDS AT THIS TIME.
[2022-04-24 09:58] LABS: Creatinine, Blood 0.98 mg/dL (0.60-1.20); Potassium, Blood 2.8 mmol/L (3.5-5.5)
--- NOTE | 2022-04-24 10:01 | NUR ---
CALL TO DR MILLER TO RELAY BMP RESULTS. STATES HE WILL ORDER POTASSIUM REPLACEMTN AND WILL RODER XANAX FOR ANXIETY IN ATTEMPT TO TITRATE OFF PRECEDEX. STATES TO HOLD FOR LETHARGY
--- NOTE | 2022-04-24 18:53 | NUR ---
SHIFT SUMMARY: PT HAS BEEN ALTERNATING BETWEEN BIPAP AND NC T/O DAY. REMAINS ON PRECEDEX GTT FOR ANXIETY AT 0.5MCG/KG AT THIS TIME. MEDICATED X1 WITH XANAX AND X1 FOR HTN. CALL TO DR MILLER FOR SECOND TREATMENT FOR HTN BUT PT'S BP HAS RECOVERED AT THIS TIME. WILL CONTINUE TO MONITOR AND TREAT NEEDED. LUNG SOUNDS UNCHANGED THIS SHIFT BUT GOOD RESPONSE TO DIURETICS AEB URINE OUTPUT. NO FURTHER NEEDS AT THIS TIME.
--- NOTE | 2022-04-24 19:29 | NUR ---
ASSUMED CARE OF PT. PT RESTING IN BED, USING CALL LIGHT APPROPRIATELY. IV HEPARIN INFUSING AT 22 UNITS AND PRECEEX INFUSING AT 0.5MCG. PT ON BIPAP AND O2 SAT IS CURRENTLY 92%
[2022-04-25 05:16] LABS: Magnesium, Blood 2.8 mg/dL (1.6-2.4)
[2022-04-25 05:17] LABS: Bun/Creatinine Ratio 44.5 (12.0-20.0); Calcium, Blood 8.3 mg/dL (8.5-10.1); Creatinine, Blood 0.97 mg/dL (0.60-1.20); Potassium, Blood 3.4 mmol/L (3.5-5.5)
--- NOTE | 2022-04-25 06:20 | NUR ---
Shift Summary: Pt had an uneventful night. Neuro: A&Ox4. Gave pt PRN Xanax for anxiety and was able to put the Precedex drip on standby. Cardiac: SB/SR with frequent PVC's. Lowest HR was 48. BP was WNL, however, this AM his BP was 170/80s and was given PRN metoprolol. heparing drip infusing at 21 units. Resp: Clear/diminished lung sounds. C/O SOB when placed on High-flow NC. Mostly stayed on Bipap throughout the night. GI/: Regular diet, requesting a lot of water - might need a fluid restriction. 1825ml of blood tinged urine output.
--- NOTE | 2022-04-25 07:30 | NUR ---
ASSUMED CARE OF PT THIS AM PT ALERT AND ORIENTED THIS AM. DENIES ANY CHEST PAIN OR PRESSURE AT THIS TIME. PT CURRENTLY ON BIPAP FOR SLEEP, SWITCHED TO 6L HFNC. PT. HAS OCCASIONAL PRODUCTIVE COUGH. LS CRACKLES IN THE BASES. PT. SAT UP FOR BREAKFAST THIS AM, FLUID RESTRICTION INITIATED. PT. ABLE TO PETERSEN. ORDER PLACED FOR PT/OT EVAL. PT. DOES GET ANXIOUS AT TIMES, INCREASING RR HOWEVER SPO2 REMAINS IN THE MID 90S. XANAX ADMIN THIS AM. YOO IN PLACE, DRAINING PINK TINGED URINE TO GRAVITY. CALL LIGHT IN REACH, ALL NEEDS MET AT THIS TIME.
--- NOTE | 2022-04-25 09:35 | NUR ---
PT UP TO BEDSIDE RECLINER WITH PT. PT. REMAINS ON HFNC. TRANSFER ORDERS FOR PCU STATUS.
--- NOTE | 2022-04-25 12:07 | NUR ---
UPDATE PT.REMAINS UP IN CHAIR, PT AT BEDSIDE. PT WANTING TO MOVE, DID SOME SIT TO STAND EXERCISES WITH PT. VERY WEAK AND HR AND RR EFFORT INCREASE WITH ACTIVITY BUT DOES RECOVER. CALL LIGHT IN REACH, LUNCH PROVIDED.
--- NOTE | 2022-04-25 15:03 | NUR ---
CALL TO DR. MILLER REGARDING HEPARIN INFUSION. PER ORDER HEPARIN DCD AT THIS TIME.
--- NOTE | 2022-04-25 17:30 | NUR ---
BACK TO BED BATH GIVEN TO PT WHILE UP IN RECLINER AFTER DINNER. PT. ABLE TO STAND AND TRANSFER WITH WALKER AND SMALL STEPS. PT. STRENGTH MUCH IMPROVED FROM THIS AM. RR INCREASED WITH ACTIVITY HOWEVER O2 DEMANDS DID NOT INCREASE, PT HR DID INCREASE TO 110-120S WITH ACTIVITY HOWEVER CONTINUES TO DENY CHEST PAIN OR PRESSURE.
--- NOTE | 2022-04-25 18:12 | NUR ---
SHIFT SUMMARY PT. REMAINS ALERT AND ORIENTED T/O SHIFT. UP TO BEDSIDE RECLINER ALL DAY TODAY. DOING MULTIPLE SIT TO STAND EXERCISES T/O DAY. PT. MED ONCE FOR PAIN TODAY, C/O HEADACHE AND BACKACHE. DENIES CHEST PAIN T/O DAY. PT. RR EFFORT IMPROVED TODAY, PT REPORTS FEELING LESS SOB AT REST THIS PM. PT. REMAINS ON HIGH FLOW NC, AT 5L HUM HFNC. ALL NEEDS MET AT THIS TIME, VSS. CALL LIGHT IN REACH, REPORT TO ONCOMING RN .
[2022-04-25 19:56] LABS: Source, Urine Foley catheter
[2022-04-25 20:04] LABS: Appearance, Urine Hazy (Clear); Bilirubin, Urine Neg (Neg); Blood, Urine 5+ (Neg); Color, Urine Yellow (P-Yellow); Glucose Qualitative, Urine Neg (Neg); Ketones, Urine Neg (Neg); Leukocyte Esterase, Urine Neg (Neg); Nitrite, Urine Neg (Neg); Protein, Urine 3+ (Neg); Specific Gravity, Urine 1.015 (1.003-1.022); Urobilinogen, Urine NORM (Normal)
[2022-04-25 20:26] LABS: Bun/Creatinine Ratio 38.5 (12.0-20.0); Calcium, Blood 8.4 mg/dL (8.5-10.1); Creatinine, Blood 1.22 mg/dL (0.60-1.20); Potassium, Blood 3.4 mmol/L (3.5-5.5)
[2022-04-25 20:52] LABS: Bacteria Few /hpf; Red Blood Cells, Urine 25-50 /hpf (0-2); Squamous Epithelial Cells Rare /hpf (Few)
[2022-04-25 20:53] LABS: Granular Casts 0-2 /lpf (0); Hyaline Casts 0-2 /lpf (0-2)
--- NOTE | 2022-04-25 23:17 | NUR ---
PT HAVING FREQUENT PVC'S (10-40/MIN) AND HAD A COUPLE OF RUNS OF VTACH. BP STABLE 153/78. K OF 3.4 WAS REPLACED WITH 40MEQ PO, MAG THIS AM WAS 2.8. SPOKE WITH DR. MONIQUE AND INFORMED HIM THAT HE IS NORMALLY ON TOPROL XL 50MG DAILY. ECHO ORDERED FOR THE MORNING AND HOME MED RESTARTED
[2022-04-26 05:14] LABS: Bun/Creatinine Ratio 39.3 (12.0-20.0); Calcium, Blood 8.6 mg/dL (8.5-10.1); Creatinine, Blood 1.17 mg/dL (0.60-1.20)
--- NOTE | 2022-04-26 06:09 | NUR ---
Shift Summary: Pt was unable to get any sleep overnight. Trazadone, xanax, and morphine given. Around 4am, pt wanted to get up in the recliner, refused the bipap and told me that he was going to go home today regardless. He's worried about his being alone at home alone. Will inform nurse this AM of pt's request. Neuro: A&Ox4. Gave PRN Xanax for anxiety that didn't help. he is able to get up with 2-person assist and a walker to toilet and to chair. Cardiac: SR/ST with frequent PVC's, a short run of Vtach and was in trigeminy a handful of times. Informed the doctor and electrolytes were checked. 1 time dose of Potassium was given for a K level of 3.4. Pt still had these arrhythmias and was restarted on his home dose of metoprolol. Resp: Clear/diminished lung sounds. Pt attempted bipap overnight, but requested to be put on high-flow and sit in chair. GI/: Regular diet, 1.2L fluid restriction. 1,200ML of urine output
--- NOTE | 2022-04-26 08:30 | NUR ---
ASSUMED CARE OF "MIHA" AT 0700. HE WAS UP IN THE CHAIR BUT WAS FEELING A BIT OFF AND ASKED TO BE PUT BACK TO BED. HE WAS A 2 PERSON ASSIST TO BED. HE IS MORE ALERT AND COOPERATIVE, HE IS ASKING THAT A PHONE CALL TO HIS BE DONE SO THAT SHE CAN BRING HIM SOME CLOTHES AND GO HOME. HE SAYS THAT HE IS ANXIOUS BECAUSE HE WORRIES ABOUT HIS BEING ALONE, THAT HE WILL NOT REST UNTIL HE IS WITH HER. HIS BREATHING POST TREATMENT IS IMPROVED WITH SATS 93%. HE IS ABLE TO COUGH AND BRING UP CLEAR RETURN. HE WAS ABLE TO EAT SOME BREAKFAST AND IS COOPERATIVE WITH HIS CARE. SEE ASSESSMENT FOR DETAILS.
--- NOTE | 2022-04-26 10:38 | NUR ---
PT IS SITTING UP IN THE CHAIR, HE HAD PHONED HIS AND TOLD HER HE WAS COMING HOME. GRANDDAUGHTER CALLED CONCERNED THAT THIS WAS NOT POSSIBLE SHE IS UNABLE TO CARE FOR HIM BY HERSELF. PT CONTINUES TO SAY, DESPITE REFUSAL FROM FAMILY MEMBERS THAT HE IS GOING HOME. BROTHER IS HERE VISITING AT THIS TIME.
--- NOTE | 2022-04-26 11:47 | NUR ---
PT HAS BEEN RILED UP SINCE A VISIT BY HIS BROTHER, HE PHONED HIS ON HIS BROTHER'S CELL PHONE AND WAS VERY HARSH. WAS NOT HAPPY. CLINICAL COORDI- NATOR HAS BEEN, DR. BRYANT HAS SPOKEN TO HIM. HE IS SO FOCUSED ON GOING HOME, THERE IS NOTHING THAT HAS HELPED TO CALM HIM DOWN YET. WILL CONTINUE TO TRY POSITIVE REINFORCEMENT.
--- NOTE | 2022-04-26 12:06 | NUR ---
PT GIVEN HALDOL BY HIS PERMISSION, LIGHTS TURNED DOWN, DOOR CLOSED. TRYING TO ENCOURAGE PATIENT TO REST.
--- NOTE | 2022-04-26 13:13 | NUR ---
PT IS NOW SLEEPING, HE IS IN THE RECLINER AND HAS SETTLED IN TO SLEEP. THE SEROQUEL WAS THE ANSWER.
--- NOTE | 2022-04-26 15:17 | NUR ---
PT IS NOW AWAKE AND TOTALLY ORIENTED. AT FIRST AFTER WAKING UP HE WAS DISORIENTED AND UNABLE TO FOCUS. ONCE HE WAS ABLE TO CLEAR AND AFTER MUCH REORIENTATION HE IS BACK TO BASELINE. HE RECALLS ALL THE CONVERSATIONS THIS AM WITH STAFF AND DOCTOR. HE STATES THAT HE IS FEELING BETTER.
--- NOTE | 2022-04-26 15:54 | NUR ---
MIAH WAS ABLE TO WORK WITH P/T. HE WAS ABLE TO STAND OUT OF THE CHAIR, THEN TAKE STEPS FORWARD AND STEPS BACK. DOING THIS SEVERAL TIMES BEFORE RETURNING TO THE CHAIR. IT DID CAUSE HIM TO BE SLIGHTLY SHORT OF BREATH, BUT SATS REMAINED >92%. HE IS ENCOURAGED.
--- NOTE | 2022-04-26 17:23 | NUR ---
MIAH WAS GETTING REALLY TIRED AND WANTED TO GO BACK TO BED, HE WAS ASSISTED VIA GAIT BELT AND WALKER TO HIS BED. HE TRANSFERRED VERY WELL WITH LIMITED ASSISTANCE BY STAFF, VERBAL CUES ONLY. REPORT GIVEN TO ADELA DOCKERY RN. PT TRANSFERRED VIA BED TO PCU 16.
--- NOTE | 2022-04-27 05:52 | NUR ---
SHIFT SUMMARY PT A&O X 3. PT RESTLESS THROUGHOUT SHIFT AND AT TIMES MILDLY AGITATED. MEDICATED PER EMAR BUT DID NOT SEEM TO HELP; PT DID NOT SLEEP DURING SHIFT. PT IN AND OUT OF BED, UP TO BEDSIDE CHAIR. PT UP TO SIDE OF BED FREQUENTLY. VSS; PT HAD ONE SOFT SBP AT 83 BUT LAST SBP 116/70, HR 90'S, 02 >95% ON 6 L VIA HIGH-FLOW NC, AFEBRILE. PT DID TAKE O2 OFF A FEW TIMES THROUGHOUT SHIFT CAUSING O2 TO DROP TO 86 - 87%. PT REMINDED TO KEEP O2 IN AND EDUCATION PROVIDED, PT VERBALIZED UNDERSTANDING AND O2 NC REPLACED. PT RECOVERED, ALTHOUGH SOB NOTED DURING THIS TIME. PT DENIES SOB, BUT THIS RN NOTED SOB W/EXERTION OR MOVEMENT; PT RESTLESS. LUNGS SOUNDS A LITTLE DIMINSHED THROUGHOUT. PT DOES STATE "I FEEL A LITTLE WINDED AFTER MOVING AROUND". PT DECLINED TO USE CPAP AT NIGHT. PT DENIES CP OR PRESSURE. YOO CATHETER REMOVED DURING SHIFT D/T PT REPORTS OF "BURNING, PAIN AND UNCOMFORTABLE". PT VOIDED SMALL AMOUNT SINCE. WILL UPDATE ONCOMING NURSE. NO BM DURING SHIFT. MILD EDEMA NOTED BLE; PT REPORTS TENDERNESS AND SENSITIVITY IN BOTH FEET. CALL LIGHT IN REACH, BUT PT NOT USING APPROPRIATELY TO VERBALIZE NEEDS. PT CALLING OUT "HELP" OR "HELLO, ANYONE OUT THERE". PT EDUCATED CASING FLUID TENDER LIGHT USE BUT STILL DID NOT USE. PT STILL HAS FREQUENT, PRODUCTIVE COUGH.
--- NOTE | 2022-04-27 17:53 | NUR ---
END OF SHIFT NOTE PT A&O TO SELF & PLACE. PT REPORTING DATE "APRIL 2030." PT VERY FORGETFUL, ASKING SAME Q's MULTIPLE TIMES THIS SHIFT. PT CALLING WIRE WRAPPER MACHINE OPERATOR LIGHT REPETITIVELY, REQUESTING FLUIDS DESPITE REMINDER OF FLUID RESTRICTION. PT TAKING OFF TELEMETRY MULTIPLE TIMES DESPITE REQUEST TO LEAVE IN PLACE, PT STATING "I DIDN'T MEAN TO, IT JUST CAME OFF" THOUGH ALL STICKERS & LEADS REMOVED. PT WEARING ATTENDS, BUT URINATING ON FLOOR OR BEDDING MULTIPLE TIMES THIS SHIFT. PT ENCOURAGED NOT TO REMOVE ATTENDS. PT TAKING APART PEN ON BEDSIDE TABLE W/ PIECES FOUND SCATTERED ABOUT. PT GETTING UP W/ OUT USING CALL LIGHT FOR ASSISTANCE, THOUGH PT USING CALL LIGHT FOR OTHER THINGS. BED ALARM SET OFF MULTIPLE TIMES & PT FOUND GETTING UP, TANGLED IN OXYGEN TUBING. PT REMINDED MULTIPLE TIMES TO CALL FOR ASSISTANCE WHEN GETTING UP. PT APOLOGETIC FOR "BEING A HANDFUL" & STATING "I WON'T DO THAT STUFF ANYMORE. YOU DON'T DESERVE THAT." BUT CONTINUES W/ SUCH DOINGS. PT 1 PERSON ASSIST W/ FWW. VSS. SPO2 > 92% ON 6L HI-KANDI NC, TITRATED TO 4L W/ PT TOLERATING WELL. PT THEN REMOVING NC, BUT TOLERATING RA WELL.
[2022-04-28 05:12] LABS: Hemoglobin 14.8 g/dL (13.5-17.5); Mean Corpuscular HGB 27.9 pg (26.0-34.0); Mean Corpuscular HGB Conc 32.2 g/dL (31.5-36.5); Mean Corpuscular Volume 87 fL (80-100); Mean Platelet Volume 10.6 fL (9.1-12.4); Platelet Count 283 K/mm3 (150-400); RDW Coefficient Variation 16.5 % (11.7-14.2); RDW Standard Deviation 52.2 fL (35.1-46.3); Red Blood Cell Count 5.31 M/mm3 (4.30-5.90); White Blood Cell Count 25.37 K/mm3 (4.00-11.30)
[2022-04-28 05:26] LABS: Bun/Creatinine Ratio 33.6 (12.0-20.0); Calcium, Blood 9.2 mg/dL (8.5-10.1); Creatinine, Blood 1.31 mg/dL (0.60-1.20); Potassium, Blood 4.1 mmol/L (3.5-5.5)
--- NOTE | 2022-04-28 05:31 | NUR ---
SHIFT SUMMARY PT RESTLESS AND UNABLE TO REST FOR FIRST PART OF SHIFT. PT FORGETFUL AND SEEMS VERY CONFUSED; MAKES STATEMENTS LIKE "I NEED TO GO OUT AND GET THE DOGS" OR BELIEVING THIS RN WAS SOMEONE HE KNEW FROM A WHILE AGO AND ASKING QUESTIONS IF HE KNEW THIS DIETARY CLERK. ETC. (SEEMS TO THINK IS A DIFFERENT PERSON), PT ALSO TRYING TO GET OUT OF BED SEVERAL TIMES CAUSING BED ALARM TO GO OFF FREQUENTLY. PT PULLED OUT IV AND ALSO PULLED OF TELEMETRY STICKERS AND CORDS SEVERAL TIMES. PT FORGETS HIS LIMITATIONS IN WALKING AND BEING SAFE. THIS RN PROVIDED EDUCATION ABOUT SAFETY, FALL PREVENTION, USE OF FWW AND CALL LIGHT FOR NEEDS. PT DID NOT USE CALL LIGHT FOR THESE REASONS. AT ONE POINT PT GOT OUT OF BEDSIDE CHAIR AND CAME OUT TO NURSES STATION JUST OUTSIDE HIS ROOM AND SAT IN A CHAIR. PT HAD PULLED OF O2 NC. PT WAS ABLE TO BE REDIRECTED AND REORIENTED BACK TO ROOM. AT TIMES PT AGITATED, STATING "THIS WASNT THE PLAN, i WANT TO GO HOME" OR "CALL MY OR BROTHER PLEASE". AROUND 2200 PT FINALLY SLEPT FOR ABOUT 40 MINS, THEN UP FOR A FEW HOURS. THIS RN GAVE PRN SEROQEL PER EMAR. AFTER A WHILE, PT WAS ABLE TO SLEEP FOR SEVERAL HOURS. AT ONE POINT PT AWOKE STATING "I NEED TO GO INTO THE KITCHEN AND COOK". THIS RN REORIENTED PT AND PT WAS ABLE TO GET BACK INTO BED AND SLEEP AGAIN. OTHERWISE; VSS. PT SOB W/EXERTION AND INCREASED WOB W/EXERTION. PT STILL COUGHING FREQUENTLY; LOOSE, WET SOUNDING COUGH. PT DENIES CP OR PRESSURE THROUGHOUT SHIFT. PT ABLE TO USE URINAL AT TIMES AND AT OTHER TIMES SOILED ATTENDS BUT WAS ABLE TO VERBALIZE THEY WERE WET. NO OTHER CHANGES THROUGHOUT SHIFT.
--- NOTE | 2022-04-28 08:21 | NUR ---
ASSUMED CARE PT IS CONFUSED, BUT ORIENTED X3. SPO2 >92% ON 4L NC; MAP >65. PT WAS EXTREMELY AGITATED THIS AM WHILE RECEIVING REPORT, BUT HAS SINCE BECOME MORE COOPERATIVE W/ CARE. CONSISTANTLY MOVING AROUND THE ROOM AND USING ENVIRONMENT TO ASSIST IN WALKING EVEN WHEN ADVISED NOT TO. EXPIRATORY WHEEZES NOTED ON RIGHT SIDE AND COARSE CRACKLES IN LEFT BASES. PT EXPRESSES DESIRE TO GO HOME AND CALLED WITH CONCERNS ABOUT INABILITY TO CARE FOR HIM IF HE IS UNABLE TO INDEPENDANTLY PERFORM ADL'S. CASE MANAGEMENT CONSULTATION ORDERED.
--- NOTE | 2022-04-28 17:11 | NUR ---
SHIFT SUMMARY PT IS A&O X2-3, BUT NEEDS FREQUENT REORIENTING W/ LIMITATIONS. SPO2 >92% ON 4L NC; MAP >65. PT AMBULATES W/ WALKER AT BASELINE AND HAS BEEN USING ENVIRONMENT TO MOVE EVEN WHEN ADVISED NOT TO. PT HAS BEEN RESTLESS FOR MOST OF DAY, BUT HAS BEEN PLEASANT AND COOPERATES W/ CARE. HAS BEEN UPDATED AND EXPRESSES DESIRE TO DISCUSS W/ CARE MANAGEMENT ABOUT FUTURE PLANS. NO ACUTE EVENTS THIS SHIFT.
--- NOTE | 2022-04-28 21:35 | NUR ---
ASSUMPTION OF CARE THIS RN ASSUMED CARE OF PT AT 1915; RECEIVED REPORT FROM PEACE SILVA. PT SITTING IN BEDSIDE CHAIR, WATCHING TV. PT PLEASANT AND RESPONDING TO QUESTIONS APPROPRIATELY. VSS; SEE DOCUMENTATION. 02 >65% ON 4 L VIA NC. PT DENIES SOB; THIS RN NOTES MILDLY INCREASED WORK OF BREATHING. PT STATES HE WAS JUST "MOVING AROUND". LUNG SOUNDS COURSE; PT DECLINED BREATHING TX PER RT. PT A&O X 2 -3; ORIENTED TO PLACE, PERSON/SELF, AND DATE; ALTHOUGH PT CONFUSED ABOUT "TIME" STATES IS CONFUSED ABOUT "WHAT THE CLOCK SAYS AND IF IT IS MORNING OR NIGHT". EASILY REORIENTED. PT WANTS TO CALL ABOUT GOING HOME AND STATES "IS SUPPOSE TO GO HOME TODAY". THIS RN EXPLAINED THERE ARE NO DISCHARGE PLANS FOR TONIGHT, AND WILL REVISIT IN THE AM WITH PROVIDER AND PT'S . PT DOES NOT HAVE ANY NEEDS CURRENTLY AND IS RESTING IN THE BEDSIDE CHAIR W/CALL LIGHT IN REACH
[2022-04-29 04:17] LABS: Hematocrit 44.1 % (37.0-53.0); Hemoglobin 14.1 g/dL (13.5-17.5); Mean Corpuscular Volume 88 fL (80-100); Mean Platelet Volume 10.7 fL (9.1-12.4); Platelet Count 234 K/mm3 (150-400); RDW Standard Deviation 53.1 fL (35.1-46.3); Red Blood Cell Count 5.03 M/mm3 (4.30-5.90); White Blood Cell Count 19.83 K/mm3 (4.00-11.30)
[2022-04-29 04:47] LABS: Bun/Creatinine Ratio 32.5 (12.0-20.0); Calcium, Blood 9.4 mg/dL (8.5-10.1); Creatinine, Blood 1.14 mg/dL (0.60-1.20); Potassium, Blood 4.4 mmol/L (3.5-5.5)
--- NOTE | 2022-04-29 05:53 | NUR ---
SHIFT SUMMARY NO ACUTE CHANGES THROUGHOUT SHIFT. VSS. PT RESTED VERY WELL THIS SHIFT, AT TIMES WAKING TO USE BATHROOM OR SIT UP ON SIDE OF BED. PT LUNGS SOUNDS COARSE AND A LITTLE WHEEZY; THIS RN OFFERED TO NOTIFY RT FOR BREATHING TX. PT AGREED, RT IN FOR TX. SEEMED TO HELP. PT HAD COMPLETE BATH AND LINEN CHANGE THIS SHIFT. PT REMAINS ON 4 L VIA NC, 02 SATS MAINTAINED >93%. PT STILL CURRENTLY SLEEPING. CALL LIGHT IN REACH.
--- NOTE | 2022-04-29 17:10 | NUR ---
SHIFT SUMMARY PT IS ALERT TO SELF, MONTH, FAMILY, PLACE AND SITUATION BUT IS FORGETFUL AT TIMES. HE DOES NOT ALWAYS USE HIS CALL LIGHT APPROPRIATELY. BED ALARM HAS BEEN IN USE T/O SHIFT. VSS, SPO2 MAINTAINED >95% VIA 3L NC, HE DOES REPORT FEELING SOB W/ EXERTION. OCCASIONAL, PRODUCTIVE COUGH NOTED. HE HAS DENIED FEELINGS OF CHEST PAIN/PRESSURE, HE HAS DENIED FEELINGS OF NAUSEA. PT HAS BEEN ABLE TO AMBULATE TO BATHROOM TO VOID ONE TIME BUT HAS OTHERWISE USED THE BEDSIDE URINAL OR HAD EPISODES OF INCONTINENCE. HE USES A FWW TO AMBULATE AND DOES APPEAR WEAK BUT NEEDS MOSTLY VERBAL CUES OR ASSISTANCE TO MANAGE O2 TUBE. PT WAS ENOURAGED TO SIT IN CHAIR FOR MEALS BUT DECLINED. THIS NURSE EDUCATED THE PT ON IMPORTANCE OF AMBULATING HIS ABILITIES SAFELY ALLOW IN ORDER TO IMPROVE CONDITIONING. HIS ZA AND TWO OF HIS NIECES WERE AT BEDSIDE THIS AFTERNOON. THIS NURSE SPOKE W/ FAMILY REGARDING DISCHARGE PLANNING BASED ON CARE MANAGEMENT NOTES WELL PHYSICAL THERAPISTS RECOMMENDATIONS. PT IS NOW LAYING IN BED WATCHING T.V. WILL CONTINUE TO MONITOR UNTIL REPORT GIVEN. CALL LIGHT IS IN REACH, BED ALARM ON.
--- NOTE | 2022-04-29 23:04 | NUR ---
ASSUMPTION OF CARE THIS RN ASSUMED CARE OF PT AT 1900. PT SITTING UP IN BEDSIDE CHAIR, WATCHING TV. VS; BP 154/60, SR W/HR OF 68, RR 18, SPO2 96% ON 2 L, 98.8 F. PT DENIES CP OR PRESSURE, DENIES SOB, STATES HE "FEELS LIKE BREATHING IS BETTER AND IMPROVING". THIS RN NOTES MILD SOB AND INCREASED WOB WITH MOVEMENT AND DURING CONVERSATION; SPO2 MAINTAINED AT 96%. LUNG SOUNDS ARE COARSE W/RHONCI. PT HAS OCCASSIONAL, LOOSE COUGH. DENIES ANY SPUTUM. PT REPORTS HIS COUGH IS "GETTING BETTER". PT DOES NOT EXPRESS ANY CONCERNS OR NEEDS AT THIS TIME EXCEPT HIS DESIRE TO GO HOME AND STATES "THEY SHOULD OF SENT ME SOMEWHERE TODAY". THIS RN REMINDED PT THAT THE ISSUE IS A SAFE DISCHARGE AND THAT THE TEAM IS WORKING ON A PLAN. CALL LIGHT IN REACH AND PT REMINDED TO USE IT WHEN HE HAS A NEED OR IS GETTING UP IN ROOM. PT VERBALIZES UNDERSTANDING.
--- NOTE | 2022-04-30 01:10 | NUR ---
UPDATE 0766 THIS RN WENT TO ROUND ON PT; WHEN ENTERING ROOM AUDIBLE WHEEZING NOTED, WOB INCREASED AND PT SOB SEEMS TO BE WORSE. PT LYING IN BED, THIS RN ASKED PT IF HE FEELS SOB OR HOW HE IS FEELING, PT DENIES SOB BUT STATES "I FEEL A LITTLE WINDED". PT A LITTLE RESTLESS AND CONTINUES TO ALTERNATE BETWEEN LYING DOWN AND SITTING AT EDGE OF BED. RN NOTIFIED RT AND REQUEST BREATHING TX. PER RT TREATMENT DID NOT SEEM TO HELP. RT EXPRESSES THAT IT MIGHT BE MORE RELATED TO "FLUID OVERLOAD". THIS RN CALLED RESIDENT TO UPDATE ON CHANGE. NEW ORDER FOR BNP AND INHALER W/STEROIDS OTHERWISE RESIDENT WANTS THIS RN TO KEEP OBSERVATION ON PT. LAB INTO DRAW BNP; THIS RN WAITING FOR RESULTS. PT IS NOW LYING DOWN RESTING. SEEMS AUDIBLE WHEEZING HAS DECREASED SOME.
--- NOTE | 2022-04-30 05:21 | NUR ---
SHIFT SUMMARY PT RESTED WELL THROUGHOUT THE NIGHT. PT STILL FORGETFUL; FORGETS HIS LIMITATIONS AND OFTEN GETS UP IN ROOM W/OUT USING CALL LIGHT OR USING FWW. THIS RN PROVIDED EDUCATION PORCELAIN MIXER LIGHT USE, SAFETY AND FALL PREVENTION. PT AGREED AND VERBALIZED UNDERSTANDING, BUT STILL CONTINUED WITH THIS. VSS. PT NOW ON 2 L O2 VIA NC; SPO2 MAINTAINING >94%. SOB AND WOB STILL INCREASING WITH EXERTION ALTHOUGH PT DENIES. SEE NURING NOTE ABOUT PT UPDATE RELATED TO PT AUDIBLY WHEEZING. PT BREATHING AND LUNG SOUNDS HAS IMPROVED SINCE. BNP LAB PYETON, RESULTS WERE 63. NO OTHER CHANGES THROUGHOUT SHIFT. PT STILL WANTING TO "GO HOME" AND FRUSTRATED WITH STILL BEING HERE. CALL LIGHT IN REACH AND PT REMINDED TO USE WHEN NEEDED.
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
--- NOTE | 2022-04-30 17:20 | NUR ---
NURSING PCU DAYSHIFT SUMMARY: Pt has done well t/o the shift. VS have remained stable, no significant cardiac/respiratory changes noted. Worked with PT/OT, tolerated well, physical eval/tx completed along w/cognitive evaluation. Family at bedside, update provided and plan of care discussed. Pt spent most of the shift OOB in a chair, tolerated well. Ambulates in room with one staff assist, safety alarms remain required for fall prevention. No s/s of acute distress at this time, call light in reach, cont to monitor for any changes.
--- NOTE | 2022-05-01 06:12 | NUR ---
BUTANE COMPRESSOR OPERATOR SUMMARY ASSUMED CARE OF PT AT 1900. HE IS ALERT AND ORIENTED X4, BUT VERY FORGETFUL. HX OF DEMENTIA. HE APPEARS TO BE MORE AGITATED DURING THE BUTANE COMPRESSOR OPERATOR AND IS VERY RESTLESS. PT GIVEN 150 MG SEROQUEL AT BEDTIME AND HAS BEEN RESTING INTERMITTENTLY THIS SHIFT. BED ALARM ON PT DOES NOT USE CALL LIGHT. HE WILL SIT UP AT THE EDGE OF BED INTERMITTENTLY. PT IS TACHYPNEIC BUT SATTING >94% ON 2L BY NC. LUNGS HAVE WHEEZES THROUGHOUT. PT HAS BEEN HYPERTENSIVE IN THE RIGHT ARM BUT NORMO- TO HYPOTENSIVE IN THE RIGHT ARM - RESIDENT WAS CONTACTED REGARDING PT PRN HYDRALAZINE FOR >160 SYSTOLIC AND THIS WILL BE HELD DUE TO DISCREPANCIES IN BP. PT DENIES CHEST PAIN. AWAITING PLACEMENT.
--- NOTE | 2022-05-01 07:38 | NUR ---
Pt is awake, denies any discomfort, except for feeling cold. Temperature Tympanically 97.0. States breathing is fine. Wheezing and rhonchi auscultated throughout. Pt is coughing productively. spo2 100% on room air, RR 28-30/minute while lying on his left side in bed. Heart rate 84 bpm. Discrepancy noted between blood pressures right and left side. Radial pulse very difficult to palpate on left, and B/P on left arm is 113/71. Left radial pulse easily palpated, and B/P on right arm is 187/61. No peripheral edema noted. States that he is hungry. Bed alarm is on.
--- NOTE | 2022-05-01 20:59 | NUR ---
ASSUMPTION OF CARE THIS RN ASSUMED CARE OF PATIENT AT 1900. REPORT TAKEN FROM DANIS HAND. PATIENT WITH STABLE VITALS AT SHIFT CHANGE VITALS CHECK. DENIES PAIN. ALERT AND ORIENTED FULLY WITH OCCASIONAL FORGETFULNESS WITH PLAN OF CARE AND DATE/TIME. PATIENT CONTINUES TO BE ON 2L VIA NC WHICH IS HIS BASELINE WITH SPO2 >92%. SBA WITH URINAL. BED ALARM ON DUE TO IMPULSIVENESS/FORGETFULLNESS. PATIENT IS [place] BUT ANSWERS QUESTIONS APPROPRIATELY. PATIENT ABLE TO REPOSITION SELF IN BED. BED IN LOWEST POSITION AND CALL LIGHT WITHIN REACH. THIS RN WILL REVIEW CHART AND CONTINUE TO MONITOR PATIENT AND PROVIDE INTERVENTIONS NEEDED/ORDERED.
[2022-05-02] MEDS ORDERED: CHLO25B PO (04:48)
[2022-05-02] MEDS ORDERED: TRELEGY ELLIPT1 EACH INH (04:49)
[2022-05-02] MEDS ORDERED: IPRAT-ALBUT 0.5-3 ML INH (04:50)
--- NOTE | 2022-05-02 04:54 | NUR ---
Rn shift summary: Patient was received from PCU via bed and settled into room 355. Patient is awake and was oriented to room. Pt has inspiratory and expiratory wheezes throughout. Patient is on 2 L o2 at this time. Pt needs BP taken on Rt arm only due to Left arm not being accurate. Pt resting in bed, no c/o distress. Call light in reach. Bed alarm on. Will continue to monitor.
[2022-05-02 09:40] LABS: BASOPHILS ABSOLUTE AUTO 0.12 K/mm3 (0.00-0.23); BASOPHILS PERCENT AUTO 1 % (0-2); EOSINOPHILS ABSOLUTE AUTO 0.21 K/mm3 (0.00-0.68); EOSINOPHILS PERCENT AUTO 2 % (0-6); Hematocrit 42.5 % (37.0-53.0); Hemoglobin 13.9 g/dL (13.5-17.5); IMMATURE GRAN ABSOLUTE AUTO 1.01 K/mm3 (0.00-0.10); IMMATURE GRAN PERCENT AUTO 7 % (0-1); LYMPHOCYTES ABSOLUTE AUTO 1.65 K/mm3 (0.84-5.20); LYMPHOCYTES PERCENT AUTO 12 % (21-46); MONOCYTES ABSOLUTE AUTO 1.37 K/mm3 (0.16-1.47); MONOCYTES PERCENT AUTO 10 % (4-13); Mean Corpuscular HGB 28.5 pg (26.0-34.0); Mean Corpuscular HGB Conc 32.7 g/dL (31.5-36.5); Mean Corpuscular Volume 87 fL (80-100); Mean Platelet Volume 10.5 fL (9.1-12.4); NEUTROPHILS ABSOLUTE AUTO 9.64 K/mm3 (1.96-9.15); NEUTROPHILS PERCENT AUTO 69 % (41-73); Platelet Count 222 K/mm3 (150-400); RDW Coefficient Variation 16.4 % (11.7-14.2); RDW Standard Deviation 52.2 fL (35.1-46.3); Red Blood Cell Count 4.88 M/mm3 (4.30-5.90)
[2022-05-02 10:24] LABS: Bun/Creatinine Ratio 23.9 (12.0-20.0); Creatinine, Blood 0.96 mg/dL (0.60-1.20); Potassium, Blood 3.9 mmol/L (3.5-5.5)
[2022-05-02] MEDS ORDERED: Acetaminophen325 M1 PO (14:13)
[2022-05-02] MEDS ORDERED: ASPI81CH PO (14:13)
[2022-05-02] MEDS ORDERED: HYDHCL25 PO (14:22)
[2022-05-02] MEDS ORDERED: NITR.4SL SL (14:23)
[2022-05-02] MEDS ORDERED: LISI20 PO (14:23)
[2022-05-02] MEDS ORDERED: QUETIAPINE FUM150 M1 PO (14:24)
[2022-05-02] MEDS ORDERED: Seroquel Xr50 MG PO (14:29)
[2022-05-02] MEDS ORDERED: FURO20 PO (14:29)
[2022-05-02] MEDS ORDERED: POTA10T PO (14:30)
[2022-05-02] MEDS ORDERED: NITRO-DUR1 EAC1 TOP (14:31)
--- NOTE | 2022-05-02 15:39 | NUR ---
DISCHARGE SUMMARY PT DISCHARGED TO HOME WITH HOME HEALTH. PT LEFT ROOM AT 1508 VIA WHEELCHAIR WITH THIS RN ESCORT AND TRANFERED INTO HIS GRANDSON'S CAR. PT ON 3L VIA IA, [place] 02 TANK. PT'S SPOUSE AND GRANDSON EDUCATED ON ALL DISCHARGE INSTRUCTIONS, ALL QUESTIONS ANSWERED. PT'S SPOUSE INSTRUCTED TO TAKE PATIENT TO FOLLOW UP WITH HIS PCP ON 05/15/22 AT 1400, SHE AGREES. IV DC'D AND BELONGINGS RETURNED.
== END 2022-05-02 15:36 | disposition home health service (06) | DRG 871 ==
LOC: ER 17:48 → PCU 22:12 → ERHOLD 22:12 → ICUE 04-21 14:09 → PCU 04-26 17:09 → MEDS 05-02 04:20
PROVIDERS: Internal Medicine; Nurse Practitioner Acute Care; Student in an Organized Health Care Education/Training Program; ADMIT Internal Medicine
PROC: 3E03329 Introduction of Other Anti-infective into Peripheral Vein, Percutaneous Approach (ICD-10-PCS; principal; 2022-04-20)
PROC: 5A09457 Assistance with Respiratory Ventilation, 24-96 Consecutive Hours, Continuous Positive Airway Pressure (ICD-10-PCS; 2022-04-20)
PROC: 5A0945A Assistance with Respiratory Ventilation, 24-96 Consecutive Hours, High Flow/Velocity Cannula (ICD-10-PCS; 2022-04-23)
DX: A41.9 Sepsis, unspecified organism (principal); I21.A1 Myocardial infarction type 2; I50.33 Acute on chronic diastolic (congestive) heart failure; J96.01 Acute respiratory failure with hypoxia; J96.02 Acute respiratory failure with hypercapnia; J18.9 Pneumonia, unspecified organism; J44.1 Chronic obstructive pulmonary disease with (acute) exacerbation; I67.89 Other cerebrovascular disease; J44.0 Chronic obstructive pulmonary disease with (acute) lower respiratory infection; F06.4 Anxiety disorder due to known physiological condition; R65.20 Severe sepsis without septic shock; I11.0 Hypertensive heart disease with heart failure; E11.65 Type 2 diabetes mellitus with hyperglycemia; E87.6 Hypokalemia; D50.9 Iron deficiency anemia, unspecified; E66.01 Morbid (severe) obesity due to excess calories; G47.33 Obstructive sleep apnea (adult) (pediatric); F01.50 Vascular dementia, unspecified severity, without behavioral disturbance, psychotic disturbance, mood disturbance, and anxiety; Z20.822 Contact with and (suspected) exposure to COVID-19; E78.00 Pure hypercholesterolemia, unspecified; Z79.899 Other long term (current) drug therapy; Z79.891 Long term (current) use of opiate analgesic; Z68.35 Body mass index [BMI] 35.0-35.9, adult; Z87.891 Personal history of nicotine dependence
CPT/HCPCS: 0241U; 36415; 36600; 51702; 71045; 80048; 80053; 81001; 82803; 82947; 83036; 83605; 83735; 83880; 84145; 84484; 85025; 85027; 85610; 85730; 87040; 93005; 93010; 93306; 94640; 94644; 94645; 94660; 94664; 94760; 94762; 96365-59; 96367-59; 96372-59; 96375-59; 96376-59; 97110; 97116; 97129; 97130; 97162; 97166; 97530; 97530-CQ; 97535; 99285-25; A9270; J0360; J0456; J0696; J1630; J1644; J1650; J1940; J2060; J2270; J2405; J2930; J3480; J7050; J7512